=== PATIENT | male | born 1990 | race Caucasian/White ===

== ENCOUNTER 2016-12-26 23:18 | Emergency (ER) | payer MEDICAID, OTHER ==
[~2016-12-26 23:18] MED LIST: HYDR-3658 PO
--- NOTE | 2016-12-26 23:24 | NUR ---
CALLED NO ANSWER IN WAITING ROOM
== END 2016-12-26 23:36 | disposition left against medical advice (07) ==
LOC: ER 23:22
DX: Z53.21 Procedure and treatment not carried out due to patient leaving prior to being seen by health care provider (principal)